=== PATIENT | female | born 1955 | race Hispanic/Latino ===

== ENCOUNTER 2017-02-22 17:14 | Emergency (ER) | payer MEDICARE, BC ==
[2017-02-22 17:17] VITALS: BMI 43.0
[2017-02-22 17:26] VITALS: BP 108/77; PULSE 99; TEMP 98.3
[2017-02-22] MEDS ORDERED: TDAP Vaccine 0.5 mL Syr IM ONE (17:40)
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
[2017-02-22 17:56] VITALS: RESP 18; O2SAT 99
== END 2017-02-22 17:56 | disposition home or self-care (01) ==
LOC: ED 17:14
DX: S61.250A Open bite of right index finger without damage to nail, initial encounter (principal); W54.0XXA Bitten by dog, initial encounter; Y93.89 Activity, other specified; Y92.89 Other specified places as the place of occurrence of the external cause; Z23 Encounter for immunization

== ENCOUNTER 2017-08-22 14:46 | Inpatient (IN) | payer MEDICARE, BC ==
[2017-08-22 14:47] VITALS: BMI 44.6
[2017-08-22] MEDS ORDERED: Sodium Chloride 0.9% 1,000 ML IV STA (15:40)
[2017-08-22] MEDS ORDERED: Albuterol 0.5% Inhal Sol (5 mg/ ml) 20 ml IH STA (15:41)
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
[2017-08-22 16:32] LABS: BASO # 0.02 K/mm3 (0.0-2.0); BASO % 0.4 % (0.0-3.0); EOS % 0.2 % (1.5-5.0); GRAN # 3.51 (1.4-6.5); GRAN % 66.2 % (50.0-68.0); LYMPH # 0.9 (1.2-3.4); MEAN CELL VOLUME 87.2 fl (80.0-105.0); MEAN CORPUSCULAR HEMOGLOBIN 28.7 pg (25.0-35.0); MEAN CORPUSCULAR HGB CONC 32.9 g/dl (31.0-37.0); MEAN PLATELET VOLUME 8.9 fl (7.0-11.0); MONO # 0.9 (0.1-0.6); MONO % 17.2 % (1.0-6.0); RBC 4.53 10^6/uL (3.5-6.1); RED CELL DISTRIBUTION WIDTH 15.1 % (11.5-14.5); WHITE BLOOD COUNT 5.3 10^3/ul (4.5-11.0)
[2017-08-22 16:32] LABS: URINE BILIRUBIN NEGATIVE (NEGATIVE); URINE BLOOD NEGATIVE (NEGATIVE); URINE GLUCOSE (UA) NEGATIVE (NEGATIVE); URINE LEUKOCYTE ESTERASE NEGATIVE Leu/uL (NEGATIVE); URINE NITRATE NEGATIVE (NEGATIVE); URINE PROTEIN NEGATIVE mg/dL (<30 mg/dL); URINE UROBILINOGEN 0.2 E.U./dL (<1 E.U./dL)
[2017-08-22 16:34] LABS: URINE APPEARANCE CLEAR (CLEAR); URINE COLOR YELLOW (YELLOW)
[2017-08-22 16:48] LABS: PROTHROMBIN TIME 11.5 SECONDS (9.4-12.5)
[2017-08-22 16:49] LABS: PARTIAL THROMBOPLASTIN TIME 30.7 Seconds (25.1-36.5)
[2017-08-22 16:50] LABS: ALB/GLOB RATIO 1.4 (1.1-1.8); ALBUMIN 4.2 g/dL (3.0-4.8); ALT/SGPT 39 U/L (7-56); AST/SGOT 37 U/L (14-36); BLOOD UREA NITROGEN 21 mg/dL (7-21); CALCIUM 9.3 mg/dL (8.4-10.5); GFR AFRICAN-AMERICAN > 60; GFR NON-AFRICAN AMERICAN 50
[2017-08-22 17:01] LABS: TROPONIN I < 0.01 ng/mL
--- NOTE | 2017-08-22 17:24 | RAD ---
HISTORY: cough one week COMPARISON: 11/24/2012 FINDINGS: LUNGS: No active pulmonary disease. PLEURA: No significant pleural effusion identified, no pneumothorax apparent. CARDIOVASCULAR: No radiographic findings to suggest acute or significant cardiovascular disease. OSSEOUS STRUCTURES: No significant abnormalities. VISUALIZED UPPER ABDOMEN: Normal. OTHER FINDINGS: None. IMPRESSION: No active disease. No significant interval change compared to the prior examination(s).
[2017-08-22] MEDS ORDERED: Albuterol-Ipratrop 3 mg / 0.5 (3 ml) UD IH SCH (23:30)
[2017-08-23] MEDS ORDERED: Albuterol-Ipratrop 3 mg / 0.5 (3 ml) UD IH PRN (07:22)
[2017-08-23] MEDS: Albuterol-Ipratrop 3 mg / 0.5 (3 ml) UD IH SCH ×3 (08:05→20:00)
[2017-08-23] MEDS: Budesonide 0.5 mg/2 ml Inhal Susp UD IH SCH ×2 (08:05→20:00)
[2017-08-23 08:16] VITALS: RESP 20
--- NOTE | 2017-08-23 08:32 | CARD ---
APPROVED REPORT EKG Measurement Heart [id number] <Conclusion> Normal sinus rhythm Nonspecific ST abnormality Abnormal ECG
[2017-08-23] MEDS: Potassium Chloride 20 mEq ER Tab PO SCH (09:23)
[2017-08-23] MEDS: buPROPion SR 150 MG TABLET PO SCH (09:24)
[2017-08-23] MEDS: MethylPREDNISolone 40 mg Vial IVP SCH ×2 (09:24→21:32)
--- NOTE | 2017-08-23 09:32 | CON ---
DATE: 08/23/2017 PULMONARY CONSULTATION REASON FOR CONSULTATION: Asthma. REFERRING PHYSICIAN: Génesis Caba MD HISTORY OF PRESENT ILLNESS: The patient is a 61-year-old female, with past medical history significant for asthma, obstructive sleep apnea and hypertension, who presents to [facility] with worsening dizziness and weakness for the past 2 days. In addition, the patient also states to shortness of breath at rest, dyspnea on exertion, cough, and sputum production for the past 4 days. There is no history of chest pain, coughing up of blood, or chest pain - made worse with deep respirations. The patient does have a history of fevers at home (not in the hospital). No history of chills or infectious exposure. No history of night sweats, weight loss or appetite change prior to the above events. No history of calf pains. no history of syncope or diaphoresis. No history of recent travel or trauma. REVIEW OF SYSTEMS: The patient did have some diarrhea at home. No nausea or vomiting. No acute urinary symptoms. No new musculoskeletal complaints. Rest of the review of system is negative. ALLERGIES: AMBIEN, CEFTIN, LEVAQUIN, ERYTHROMYCIN, SINGULAIR, ZANAFLEX, TRAMADOL, AND INTRAVENOUS DYE. SOCIAL HISTORY: Negative for tobacco. Negative for alcohol. FAMILY HISTORY: No inheritable diseases. HOME MEDICATIONS: Include glucosamine, Lipitor, MiraLax, Xopenex, QVAR, Dymista, ProAir, Perforomist, Motrin, Xanax, Lyrica, Cozaar, and Lasix. PHYSICAL EXAMINATION: GENERAL: The patient is not short of breath at rest. She is not using accessory muscles for breathing. VITAL SIGNS: Temperature is 98.0, pulse is 90, respirations are 18, and blood pressure is 116/65. Oxygen saturation on room air is 98%. HEENT: Normocephalic and atraumatic. NECK: No JVD. CARDIOVASCULAR: Positive S1 and S2. No S3 gallop. LUNGS: Decreased breath sounds at the bases. Scattered bilateral loose rhonchi. Minimal wheezing. EXTREMITIES: Positive for edema. No cyanosis and no clubbing. Calves are nontender to palpation. GASTROINTESTINAL: Abdomen is soft, nontender and nondistended. Bowel sounds are positive. SKIN: No acute rash. NEUROLOGIC: Exam is limited at the present time. PERTINENT LABORATORY DATA: Chest x-ray was done and reviewed. There is no active disease noted. CBC: White count of 5.3, hemoglobin of 13.0, hematocrit of 39.5, and platelets of 219,000. Complete metabolic profile: Glucose of 114 and AST of 37. Rest of the metabolic profile is within normal limits. Serologies are positive for influenza A. IMPRESSION: 1. Acute bronchitis. 2. Influenza A positivity. 3. Asthma. 4. Obstructive sleep apnea. PLAN: The patient presents to [facility] with main complaints of severe dizziness and weakness for the past 2 days. In addition, as above, the patient also presents with increasing pulmonary symptoms over the past 4 days. I did review the chest x-ray as above. The chest x-ray shows no active disease. On physical exam, there is [id number] bronchospasm present. However, there is no significant alveolar-arterial gradient. Oxygen saturation on room air is 98% --100%. I will start the patient on DuoNeb treatments, inhaled Pulmicort, and low-dose intravenous steroids this morning. The patient has been started on oseltamivir as per Dr. Berry. Again, there have been no temperatures while in the hospital. I will also continue with her CPAP at night. The patient does feel better and is clinically improved this morning - compared to the past few days. Additional pulmonary intervention will be based on the clinical status of the patient. I will discuss the above with the attending physician. Thank you very much for this pulmonary consultation. [place] Melissa MD ROSA
--- NOTE | 2017-08-23 23:08 | CP.PCM.PN ---
Subjective - Date & Time of Evaluation Date of Evaluation: 08/23/17 Time of Evaluation: 23:06 - Subjective Subjective: S: Motrin was requested by patient as tylenol did not help for headache. Has no other complaints. Medical record was reviewed. O: Last Vital Signs 3 Temp 98.6 F 08/23/17 21:26 Pulse 94 H 08/23/17 21:26 Resp 20 08/23/17 21:26 BP 105/67 08/23/17 21:26 Pulse Ox 92 L 08/23/17 21:26 Awake, alert. LUNGS:Normal breathing pattern. A:Headache. P: Motrin 800 mg PO x 1. Objective - Vital Signs/Intake and Output Vital Signs (last 24 hours): Temp Pulse Resp BP Pulse Ox 98.6 F 94 H 20 105/67 92 L 08/23/17 21:26 08/23/17 21:26 08/23/17 21:26 08/23/17 21:26 08/23/17 21:26 Intake and Output: 08/23/17 08/24/17 18:59 06:59 Intake Total 660 Balance 660 - Medications Medications: Current Medications Acetaminophen (Tylenol 325mg Tab) 650 mg PO Q6H PRN PRN Reason: Headache Albuterol/Ipratropium (Duoneb 3 Mg/0.5 Mg (3 Ml) Ud) 3 ml IH [id number] [facility] Last Admin: 08/23/17 13:34 Dose: 3 ml Albuterol/Ipratropium (Duoneb 3 Mg/0.5 Mg (3 Ml) Ud) 3 ml IH Q2H PRN PRN Reason: Shortness of Breath Alprazolam (Xanax) 0.5 mg PO BID PRN; Protocol PRN Reason: Anxiety Last Admin: 08/23/17 21:31 Dose: 0.5 mg Aspirin (Ecotrin) 81 mg PO DAILY [facility] Last Admin: 08/23/17 09:23 Dose: 81 mg Atorvastatin Calcium (Lipitor) 40 mg PO HS [facility] Last Admin: 08/23/17 21:31 Dose: 40 mg Budesonide (Pulmicort Respules) 0.5 mg IH [id number] [facility] Last Admin: 08/23/17 08:05 Dose: 0.5 mg Bupropion HCl (Wellbutrin Sr 150 Mg) 300 mg PO DAILY [facility] Last Admin: 08/23/17 09:24 Dose: 300 mg Furosemide (Lasix) 40 mg PO DAILY [facility] Last Admin: 08/23/17 09:23 Dose: 40 mg Losartan Potassium (Cozaar) 100 mg PO DAILY [facility] Last Admin: 08/23/17 09:22 Dose: 100 mg Methylprednisolone (Solu-Medrol) 30 mg IVP Q12 [facility] Last Admin: 08/23/17 21:32 Dose: 30 mg Oseltamivir Phosphate (Tamiflu Cap) 75 mg PO BID [facility] PRN Reason: Protocol Stop: 08/28/17 10:01 Last Admin: 08/23/17 17:08 Dose: 75 mg Potassium Chloride (K-Dur 20 Meq Er Tab) 20 meq PO DAILY [facility] Last Admin: 08/23/17 09:23 Dose: 20 meq Pregabalin (Lyrica) 150 mg PO BID [facility] Last Admin: 08/23/17 17:08 Dose: 150 mg - Labs Labs: PT 11.5 SECONDS (9.4-12.5) 08/22/17 16:10 INR 1.00 (0.93-1.08) 08/22/17 16:10 APTT 30.7 Seconds (25.1-36.5) 08/22/17 16:10
[2017-08-24] MEDS: Albuterol-Ipratrop 3 mg / 0.5 (3 ml) UD IH SCH ×3 (01:28→13:49)
--- NOTE | 2017-08-24 04:17 | CON ---
DATE: 08/23/2017 LOCATION: The patient is seen earlier this morning in room 574, bed 2. CHIEF COMPLAINT: Lightheadedness and dizziness HISTORY OF PRESENT ILLNESS: This is a 61-year-old female, who was seen in the emergency room for complaining of dizziness and syncope. Recently, she was treated for pulmonary symptoms and the patient was given antibiotics, and the patient had cough with bronchitis and was given amoxicillin by Dr. , developed diarrhea, nonbloody. No fevers. No chills. No abdominal pain. No chest pain. PAST MEDICAL HISTORY: Congestive heart failure, hypertension, coronary artery disease, sleep apnea, chronic obstructive lung disease, peripheral neuropathy. PAST SURGICAL HISTORY: Significant for tubal ligation, oophorectomy, and . ALLERGIES: THE PATIENT IS ALLERGIC TO LEVAQUIN, CEFUROXIME, QUESTIONABLE RASH. MEDICATIONS: The patient's medications at home are noted, atorvastatin, Xopenex, omeprazole. PHYSICAL EXAMINATION: GENERAL: She is in bed, morbidly obese with a BMI of 44, comfortable, answering questions. VITAL SIGNS: Temperature of 99.3, heart rate of 97, respiratory rate of 20, and blood pressure is 114/70. HEENT: Unremarkable. NECK: Supple. LUNGS: Decreased breath sounds. HEART: Normal S1 and S2. ABDOMEN: Soft and nontender. No rebound or guarding. LABORATORY DATA: Reveals a white count of 5.3, hemoglobin of 13, and platelets of 319 with 66% granulocytosis. Coagulation is noted. BUN of 21, creatinine of 1.1, glucose is 121, and AST is 37. Urinalysis is noted. Serology of her influenza is positive. Microbiology reveals the patient's C. diff antigen and toxin reported to be negative. ASSESSMENT AND PLAN: This is a 61-year-old female, morbid obesity with a BMI of 44.6, congestive heart failure, hypertension, chronic obstructive lung disease, sleep apnea, hypothyroidism, peripheral neuropathy, high cholesterol, presenting with, 1. Influenza. 2. Syncope. The patient is on Tamiflu. The patient had a consultation with Dr. Melissa. The patient also had a chest x-ray, which is reported to be negative, and we will treat the patient with 5 days of Tamiflu and pulmonary management as per Dr. Melissa. We will follow with you. Horace Berry MD [facility] # [id number]
[2017-08-24] MEDS: Budesonide 0.5 mg/2 ml Inhal Susp UD IH SCH (07:46)
[2017-08-24 08:20] VITALS: PULSE 96; TEMP 97.7; O2SAT 96
--- NOTE | 2017-08-24 09:51 | PN ---
DATE: 08/24/2017 PULMONARY NOTE SUBJECTIVE: The patient appears very comfortable this morning. She is not short of breath at rest. PHYSICAL EXAMINATION: VITAL SIGNS: Last temperature recorded 98.6, pulse 88, respirations 18, last blood pressure recorded 105/67, and oxygen saturation on room air is 96%. HEENT: Normocephalic, atraumatic. No JVD. CARDIOVASCULAR: Positive S1 and S2. No S3 gallop. LUNGS: Improved breath sounds at the bases. Significant decrease in the bilateral rhonchi. No wheezing this morning. EXTREMITIES: Positive for mild edema. No cyanosis, no clubbing. Calves are nontender to palpation. GASTROINTESTINAL: Abdomen is soft, nontender, and nondistended. Bowel sounds are positive. SKIN: No acute rash. NEUROLOGIC: Limited to present time. IMPRESSION: 1. Acute bronchitis. 2. Influenza A positivity. 3. Asthma. 4. Obstructive sleep apnea. PLAN: The patient appears very comfortable this morning. She is not short of breath at rest. She is coughing much less. She does state to feeling much, much better overall. On physical exam, her bronchospasm is significantly less. In addition, there is no significant alveolar-arterial gradient. I will continue with the current nebulizer treatments and change to oral steroids this morning. I would continue with the antibiotic coverage as per Infectious Disease. Input by Dr. Berry is noted. Clinical status of the patient is significantly improved. I will discuss the above with the attending physician. [place] Melissa MD MTDD
[2017-08-24] MEDS: Potassium Chloride 20 mEq ER Tab PO SCH (10:06)
[2017-08-24] MEDS: buPROPion SR 150 MG TABLET PO SCH (10:07)
[2017-08-24 10:15] VITALS: BP 167/99
--- NOTE | 2017-08-24 23:09 | PN ---
DATE: 08/24/2017 SUBJECTIVE: The patient is in bed, in no acute distress on exam. PHYSICAL EXAMINATION: VITAL SIGNS: Temperature is 97, blood pressure is 150/60, respiratory rate of 20, and heart rate of 96. HEENT: Examination of HEENT is unremarkable. NECK: Supple. LUNGS: Have decreased breath sounds. HEART: Normal S1 and S2. GASTROINTESTINAL: Abdomina examination is soft. LABORATORY DATA: Laboratory examination reveals a white count of 5.3, hemoglobin of 13, and platelets of 219. Chemistries reveals a BUN of 21 and creatinine of 1.1. Influenza serology was positive. ASSESSMENT AND PLAN: This is a 61-year-old female who was seen early this morning in room number 574, bed 2, she is doing well with morbid obesity, body mass index of 44.6, congestive heart failure, hypertension, chronic obstructive lung disease, sleep apnea, hypothyroidism, peripheral neuropathy, high cholesterol with influenza and syncope to be followed up as outpatient. Horace Berry MD
== END 2017-08-24 15:31 | disposition home or self-care (01) | DRG 194 ==
LOC: ED 14:46 → ERH 18:48 → 5RSO 08-23 02:45 → OBSVTOIN 08-23 12:03
PROVIDERS: ADMIT Internal Medicine Medical Oncology; ATTEND Internal Medicine Medical Oncology
DX: J10.1 Influenza due to other identified influenza virus with other respiratory manifestations (principal); J44.0 Chronic obstructive pulmonary disease with (acute) lower respiratory infection; I42.9 Cardiomyopathy, unspecified; I50.9 Heart failure, unspecified; I11.0 Hypertensive heart disease with heart failure; G62.9 Polyneuropathy, unspecified; E66.01 Morbid (severe) obesity due to excess calories; Z68.41 Body mass index [BMI] 40.0-44.9, adult; J20.9 Acute bronchitis, unspecified; H35.30 Unspecified macular degeneration; G47.33 Obstructive sleep apnea (adult) (pediatric); E78.00 Pure hypercholesterolemia, unspecified; E03.9 Hypothyroidism, unspecified; I25.10 Atherosclerotic heart disease of native coronary artery without angina pectoris; Z79.82 Long term (current) use of aspirin; Z79.899 Other long term (current) drug therapy; Z90.49 Acquired absence of other specified parts of digestive tract; Z98.51 Tubal ligation status

== ENCOUNTER 2018-10-24 11:03 | Emergency (ER) | payer MEDICARE, BC ==
[2018-10-24 11:11] VITALS: BMI 47.7
[2018-10-24] MEDS ORDERED: Albuterol-Ipratrop 3 mg / 0.5 (3 ml) UD IH STA (11:29)
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
[2018-10-24 12:04] LABS: BASO # 0.02 K/mm3 (0.0-2.0); BASO % 0.3 % (0.0-3.0); EOS % 0.5 % (1.5-5.0); HEMOGLOBIN 12.6 g/dL (12.0-16.0); LYMPH # 1.9 (1.2-3.4); LYMPH % 29.8 % (22.0-35.0); MEAN CORPUSCULAR HEMOGLOBIN 28.6 pg (25.0-35.0); MEAN CORPUSCULAR HGB CONC 32.5 g/dl (31.0-37.0); MEAN PLATELET VOLUME 8.7 fl (7.0-11.0); MONO # 0.4 (0.1-0.6); MONO % 6.7 % (1.0-6.0); RBC 4.41 10^6/uL (3.5-6.1); RED CELL DISTRIBUTION WIDTH 14.6 % (11.5-14.5); WHITE BLOOD COUNT 6.5 10^3/uL (4.5-11.0)
--- NOTE | 2018-10-24 12:05 | RAD ---
Date of service: 10/24/2018 HISTORY: sob COMPARISON: No prior. FINDINGS: LUNGS: No active pulmonary disease. PLEURA: No significant pleural effusion identified, no pneumothorax apparent. CARDIOVASCULAR: No aortic atherosclerotic calcification present. Normal cardiac size. No pulmonary vascular congestion. OSSEOUS STRUCTURES: No significant abnormalities. VISUALIZED UPPER ABDOMEN: Normal. OTHER FINDINGS: None. IMPRESSION: No active disease.
[2018-10-24 12:13] LABS: ALB/GLOB RATIO 1.4 (1.1-1.8); ALBUMIN 4.5 g/dL (3.0-4.8); ALT/SGPT 26 U/L (7-56); AST/SGOT 29 U/L (14-36); BLOOD UREA NITROGEN 16 mg/dL (7-21); CALCIUM 9.7 mg/dL (8.4-10.5); GFR NON-AFRICAN AMERICAN > 60
[2018-10-24 13:40] VITALS: BP 122/79; TEMP 98
[2018-10-24 13:41] VITALS: PULSE 95; RESP 18; O2SAT 95
--- NOTE | 2018-10-24 22:05 | CARD ---
APPROVED REPORT Date of service: 10/24/2018 EKG Measurement Heart [id number] <Conclusion> Normal sinus rhythm Leftward axis Nonspecific T wave abnormality Abnormal ECG
== END 2018-10-24 13:40 | disposition home or self-care (01) ==
LOC: ED 11:03
DX: J44.1 Chronic obstructive pulmonary disease with (acute) exacerbation (principal); I11.0 Hypertensive heart disease with heart failure; I50.9 Heart failure, unspecified
CPT/HCPCS: 71045; 80053; 85025; 93005; 96374; 99284; J2060; J2930